=== PATIENT | male | born 1970 | race Caucasian/White ===

== ENCOUNTER 2024-12-16 17:20 | Emergency (ER) | payer OTHER, SELFPAY ==
[2024-12-16 17:37] VITALS: BP 150/81; PULSE 64; RESP 18; TEMP 36.5; O2SAT 98
--- NOTE | 2024-12-16 17:47 | ED.EAR ---
HPI - Ear Problem General Chief complaint: Ear Stated complaint: R Ear Time Seen by Provider: 12/16/24 17:40 Source: patient and RN notes reviewed Mode of arrival: ambulatory Limitations: no limitations History of Present Illness HPI Narrative: Patient presents today complaining of right ear pain that started approximately 6 hours prior to arrival. Denies drainage muffling, or any additional URI symptoms. Currently rates his pain 3/10 and has been taking Tylenol with some improvement. Patient had a right lower posterior tooth removed approximately 8 days ago and states he is having some mild discomfort just posterior to this tooth and is unsure if this is related. He has a follow-up appointment with his dentist sometime next week. Related Data Home Medications ?Medication ?Instructions ?Recorded ?Confirmed ?Last Taken ?Type aspirin 81 mg chewable tablet 12/16/24 Unknown History losartan 25 mg tablet mg 12/16/24 Unknown History metoprolol succinate 25 mg mg PO 12/16/24 Unknown History tablet,extended release 24 hr pantoprazole 40 mg tablet,delayed mg PO 12/16/24 Unknown History release prasugrel HCl 10 mg tablet mg 12/16/24 Unknown History rosuvastatin 40 mg tablet mg 12/16/24 Unknown History Allergies Allergy/AdvReac Type Severity Reaction Status Date / Time No Known Allergies Allergy Verified 12/16/24 17:28 [facility] Comments At time of signature, I have reviewed and agree with nursing past medical, surgical, social and family history unless otherwise noted. Please see nursing chart for further information. There is no relevant family history pertinent to the presenting complaint Exam Narrative: GENERAL: Well-appearing, well-nourished, and in no acute distress. HEAD: Normocephalic, atraumatic. EYES: EOMI. No redness or drainage. Conjunctivae normal. ENT: Mucous membranes pink and moist. Nares clear. No rhinorrhea. TMs normal bilaterally. No movement or tragal tenderness on the right exterior ear. Throat normal. Uvula midline. Healing socket of tooth 31. Mildly erythematous and edematous gumline posterior to this tooth. Tooth 32 absent. No facial swelling noted. NECK: Normal AROM. CHEST: No respiratory distress. EXTREMITIES: Normal range of motion. No edema. SKIN: Warm, dry, no rash. Capillary refill normal. Normal skin turgor. NEURO: No focal deficits. Alert and oriented x3. Gait steady. PSYCH: Normal affect. No signs of depression or anxiety. Course Course Level of Care: Express Care Visit Vital Signs Vital signs: Vital Signs Temperature 97.7 F 12/16/24 17:37 Pulse Rate 64 12/16/24 17:37 Respiratory Rate 18 12/16/24 17:37 Blood Pressure 150/81 H 12/16/24 17:37 Pulse Oximetry 98 12/16/24 17:37 Oxygen Delivery Room Air 12/16/24 17:37 Temperature 97.7 F 12/16/24 17:37 Pulse Rate 64 12/16/24 17:37 Respiratory Rate 18 12/16/24 17:37 Blood Pressure 150/81 H 12/16/24 17:37 Pulse Oximetry 98 12/16/24 17:37 Oxygen Delivery Room Air 12/16/24 17:37 Reviewed Medical Decision Making MDM Narrative Medical decision making narrative: Patient presents today complaining of right ear pain that started approximately 6 hours prior to arrival. Denies drainage muffling, or any additional URI symptoms. Currently rates his pain 3/10 and has been taking Tylenol with some improvement. Patient had a right lower posterior tooth removed approximately 8 days ago and states he is having some mild discomfort just posterior to this tooth and is unsure if this is related. He has a follow-up appointment with his dentist sometime next week. Upon exam, Healing socket of tooth 31. Mildly erythematous and edematous gumline posterior to this tooth. Tooth 32 absent. No facial swelling noted. Patient will be started on a course of amoxicillin for possible oral infection with referred pain to the ear as the ear exam is completely normal. Patient agrees with plan. Vital signs stable with mildly elevated blood pressure. Anticipatory guidance given. Differential Diagnosis Differential Diagnosis: Dental infection, gingivitis, otitis media, otitis externa, ruptured TM, serous otitis Vital Signs Vital Signs: Vital Signs Temperature 97.7 F 12/16/24 17:37 Pulse Rate 64 12/16/24 17:37 Respiratory Rate 18 12/16/24 17:37 Blood Pressure 150/81 H 12/16/24 17:37 Pulse Oximetry 98 12/16/24 17:37 Oxygen Delivery Room Air 12/16/24 17:37 Temperature 97.7 F 12/16/24 17:37 Pulse Rate 64 12/16/24 17:37 Respiratory Rate 18 12/16/24 17:37 Blood Pressure 150/81 H 12/16/24 17:37 Pulse Oximetry 98 12/16/24 17:37 Oxygen Delivery Room Air 12/16/24 17:37 Critical Care Time Critical Care Time Critical Care Time: No Discharge Plan Discharge Clinical Impression: Oral infection Patient Disposition: Home Condition: Stable Instructions: Antibiotic Form Additional Instructions: Please take the amoxicillin as prescribed until gone. Continue Tylenol for pain if needed. Please follow-up with your dentist with any additional concerns. Patient Language: [place] Island[place] Prescriptions: New amoxicillin 875 mg tablet 875 mg PO Q12H 10 Days Qty: 20 0RF No Action pantoprazole 40 mg tablet,delayed release (DR/EC) PO losartan 25 mg tablet prasugrel HCl 10 mg tablet aspirin 81 mg tablet,chewable metoprolol succinate 25 mg tablet extended release 24 hr PO rosuvastatin 40 mg tablet Follow-up/Referrals: UNKNOWN,DOCTOR [Primary Care Provider] Time of Disposition: 17:56
--- OUTSIDE RECORDS SUMMARY | 2024-12-17 15:23 | XMS_ITS | Clinical Summary ---
Author Organization [facility] Address [address] [place] [id number] Care Team Providers Care Commissioning Engineer Name Role Phone Lyly Velazquez PA-C Primary Care Provider + Allergies No known active allergies Medications Multiple Vitamin (MULTIVITAMIN ADULT OR) Active pantoprazole EC (PROTONIX) 40 MG tablet 08/20/2024 Active losartan (COZAAR) 25 MG tablet 09/21/2024 Active rosuvastatin (CRESTOR) 40 MG tablet 08/09/2024 Active ranolazine ER (RANEXA) 500 MG 12 hr tablet 08/10/2024 Active prasugrel (EFFIENT) 10 MG tablet 08/10/2024 Active Multiple Vitamin (MULTIVITAMIN) capsule Take 1 capsule by mouth daily. Active metoprolol succinate ER (TOPROL-XL) 25 MG 24 hr tablet 07/23/2024 Act lisa isosorbide dinitrate (ISORDIL) 10 MG tablet 05/16/2024 Active famotidine (PEPCID) 40 MG tablet 05/16/2024 Active aspirin 81 MG chewable tablet 05/16/2024 Act lisa celecoxib (CELEBREX) 50 MG capsule Take 1 capsule (50 mg total) by mouth 2 (two) times daily as needed. 60 capsule 10/22/2024 Active Encounters Date Type Department Care Team Description 10/22/2024 11:43 AM CDT - 10/22/2024 1:05 PM CDT Hospital Encounter [facility] [address] [place] [id number] [phone] Antonio Becker MD Ankle Pain Discharge Disposition: Home or Self Care (Routine Discharge) 10/22/2024 Travel from Last 3 Months Social History Tobacco Use Types Packs/Day Years Used Date Smoking Tobacco: Never Smokeless Tobacco: Never Tobacco Cessation:Counseling Given: Not Answered Alcohol Use Standard Drinks/Week Comments Yes 0 (1 standard drink = 0.6 oz pur e alcohol) Sex and Gender Information Value Date Recorded Sex Assigned at Male 10/22/2024 11:40 AM CDT Legal Sex Male 4:24 PM CDT Gender Identity Not on file Sexual Orientation Not on file Last Filed Vital Signs Vital Sign Reading Time Taken Comments Blood Pressure 117/77 10/22/2024 11:47 AM CDT Pulse 60 10/22/2024 11:47 AM CDT Temperature 36.6 C (97.9 F) 10/22/2024 11:47 AM CDT Respiratory Rate 18 10/22/2024 11:47 AM CDT Oxygen Saturation 98% 10/22/2024 11:47 AM CDT Inhaled Oxygen Concentration - - Weight 101.6 kg (224 lb) 10/22/2024 11:47 AM CDT Height 190.5 cm (6' 3) 10/22/2024 11:47 AM CDT Body Mass Index 28 10/22/2024 11:47 AM CDT Plan of Treatment Health Maintenance Due Date Last Done Comments Colorectal Cancer Screening Colonoscopy (10 Years) 1972 Annual Physical 04/29/1975 Hepatitis C 1990 Hepatitis B Vaccines (2 of 3 - 19+ 3-dose series) 02/26/1996 01/29/1996, 01/27/1996 Pneumococcal Vaccine: 50+ Years (2 of 2 - PCV) 2022 11/04/2008 COVID-19 Vaccine ( season) 2024 01/20/2021, 12/26/2020, 05/05/2020, Additional history exists Influenza Adult (#1) 2024 11/12/2023, 01/09/2023, 01/27/2021, Additional history exists DTaP, Tdap and Td Vaccines (3 - Td or Tdap) 06/22/2032 06/22/2022, 07/12/2009, 02/16/2005, Additional history exists Hepatitis A Vaccines Aged Out 07/26/1997, 01/22/19 97 No longer eligible based on patient's age to complete this topic Meningococcal Vaccine Aged Out 05/08/2018 , 04/17/2013, 05/07/2003 No longer eligible based on patient's age to complete this topic Zoster Vaccines Completed 12/06/2022, 06/22/2022 Meningococcal B Vaccine Aged Out No l onger eligible based on patient's age to complete this topic RSV Immunizations Under 20 Months Aged Out No longer eligible based on patient's age to complete this topic Procedures Procedure Name Priority Date/Time Associated Diagnosis Comments XR ANKLE LT M3V STAT 10/22/2024 12:23 PM CDT from Last 3 Months Results * XR ANKLE LT M3V (10/22/2024 12:23 PM CDT) Anatomical Region Laterality Modality Ankle Radiographic Liz ging 10/22/2024 12:4 9 PM CDT Impressions 10/22/2024 12:51 PM CDT IMPRESSION: 1. Soft tissue swelling of the lateral ankle without evidence of acute osseous findings. 2. Mild calcaneal plantar spurring. Referred By: Interpreted By: Antonio Lopez MD, 10/22/2024 12:49 PM Narrative 10/22/2024 12:[address] PM [address] [id number] XR ANKLE LT M3V INDICATION: twisted ankle 3 days ago TECHNIQUE: AP lateral and oblique views of the left ankle. COMPARISON: None available. FINDINGS: Ankle mortise is intact. No convincing evidence for acute fracture or dislocation. There is soft tissue swelling seen of the lateral ankle. Mild calcaneal plantar spurring. No radiopaque foreign body. No significant ankle joint effusion. Procedure Note Antonio Lopez MD - 10/22/[address] [place] [address] XR ANKLE LT M3V INDICATION: twisted ankle 3 days ago TECHNIQUE: AP lateral and oblique views of the left ankle. COMPARISON: None available. FINDINGS: Ankle mortise is intact. No convincing evidence for acute fracture ordislocation. There is soft tissue swelling seen of the lateral ankle.Mild calcaneal plantar spurring. No radiopaque foreign body. Nosignificant ankle joint effusion. IMPRESSION: 1. Soft tissue swelling of the lateral ankle without evidence of acuteosseous findings. 2. Mild calcaneal plantar spurring. Referred By: Interpreted By: Antonio Lopez MD, 10/22/2024 12:49 PM us Antonio Becker MD GENERAL IMAGING Final Result from Last 3 Months Insurance [facility] Care Teams Commissioning Engineer Relationship Specialty Start Date End Date Lyly eVlazquez PA-C [address] [place] [id number] PCP - General PHYSICIAN DELIVERY ANALYST 10/22/24
--- OUTSIDE RECORDS SUMMARY | 2024-12-17 15:23 | XMS_ITS | Clinical Summary ---
Author Organization [facility] Address [address] [place] [id number] Care Team Providers Care Automotive Brake Specialist Name Role Phone Lyly Velazquez Primary Care Provider [phone] Allergies Active Allergy Reactions Criticality Noted Date Comments Zolpidem Hallucinations Medium 06/03/2024 Eszopiclone Hallucinations Medium 06/03/2024 Medications VITAMIN D2-VITAMIN K1 ORAL Take 1 tablet/capsule by mouth daily Active prasugreL HCl (EFFIENT) tablet Take 1 tablet (10 mg total) by mouth daily 90 tablet 3 5 05/16/19 26 Active aspirin 81 mg chewable tabletIndicatio ns:prevention of thrombosis Take 1 tablet (81 mg total) by mouth daily 30 tablet 11 5 05/18/19 26 Active calcium carbonate (TUMS) 500 mg (200 mg elemental calcium) chewable tablet Take 2 tablet/chew tab (1,000 mg total) by mouth 3 (three) times a day as needed for heartburn or indigestion 5 05/17/19 26 Active Additional Information Patient not taking.Reported on 08/20/2024 metoprolol XL (TOPROL-XL) 25 mg extended release tablet Take 1 tablet (25 mg total) by mouth nightly 90 tablet 3 5 05/26/19 26 Active ranolazine ER (Ranexa) 500 mg 12 hr tabletIndicatio ns:prevention of anginal pain in coronary artery disease Take 1 tablet (500 mg total) by mouth 2 (two) times a day 180 tablet 3 5 05/27/19 26 Active melatonin 10 mg tablet Take 1 tablet (10 mg total) by mouth nightly as needed CBD/Melatonin gummy 4 gummy's nightly Active osvmwlul-bap-mu lic-vit K-lycop 400-20-370 mcg tablet Take 1 tablet by mouth daily Active red beet 500 mg capsule Take 1 capsule by mouth daily Active losartan (COZAAR) 25 mg tablet Take 1 tablet (25 mg total) by mouth 2 (two) times a day 60 tablet 11 5 06/13/19 26 Active rosuvastatin (CRESTOR) 40 mg tablet Take 1 tablet (40 mg total) by mouth nightly 90 tablet 3 5 06/13/[address] (PROTONIX) 40 mg EC tablet Take 1 tablet (40 mg total) by mouth daily 90 tablet 3 5 08/21/19 26 Active Active Problems Problem Noted Date Diagnosed Date Coronary artery disease due to lipid rich plaque 08/20/2024 Chronic bilateral low back pain without sciatica 07/23/2024 Aneurysm of ascending aorta without rupture 06/12 Overview (06/30/2024): Per CT Chest 05/2024. 4.2 cm. BMI 28.0-28.9,adult 06/04/2024 Assessment & Plan (06/04/2024 10:31 AM CDT): Mixed hyperlipidemia 06/04/2024 Assessment & Plan (06/04/2024 10:31 AM CDT): Orders: Lipid panel; Future Chronic stable angina 05/21/2024 S/P coronary artery stent placement 05/18/2024 Assessment & Plan (06/04/2024 10:31 AM CDT): Orders: Lipid panel; Future Assessment & Plan (05/18/2024 2:42 PM CDT): All medications and history reviewed. Continue with current medication regimen. Follow up with cardiology and cardiac rehab as instructed. If any chest pain or other concerning symptoms recommend in person evaluation. Patient verbalized understanding and agreed to plan of care at this time. 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 Will start Flonase as ordered, and patient should follow up in one week to RTFS. 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 06/11/2023 Well adult exam 11/16/2022 Overview (07/23/2024): PMH: Last PSA: 07/2023, ordered Last colonoscopy: 06/2024, repeat 10 yrs Last Hep C: @57 Last tdap: 06/2022 Last Shingrix: Complete Last influenza: Up-to-date Last COVID: Encouraged Chronic tension-type headache, not intractable 1 03/15/2019 Assessment & Plan (01/13/2020 3:49 PM DIRECTOR OF CONSERVATION): - stable - continue current medications Chronic left shoulder pain 01/13/2020 Assessment & Plan (01/13/2020 3:50 PM DIRECTOR OF CONSERVATION): - suspect mild tendonopathy vs muscle strain - no sign of weakness in rotator cuff - pt given home PT exercises to perform - stop weight lifting with shoulder until heals then gradually increase weight no more than 10%/wk - f/u if no improvement in 1-2 mo and will consider trial of cortisone injection Bilateral primary osteoarthritis of knee 018 Unspecified ptosis of bilateral eyelids 06/28/19 18 Resolved Problems Problem Noted Date Diagnosed Date Resolved Date Annual physical exam 01/13/2020 022 Assessment & Plan (01/13/2020 3:48 PM DIRECTOR OF CONSERVATION): - up to date on labs - encouraged regular exercise but decrease lifting with L shoulder while it heals. Osteoarthritis 01/13/2020 07/23/2024 Assessment & Plan (01/13/2020 3:49 PM DIRECTOR OF CONSERVATION): - stable - celebrex for pain; encouraged to only take celebrex 1/day except when pain flares up - f/u prn Encounters Date Type Department Care Team Description 11/24/2024 Telephone [facility] Cardiology [address] [place] [phone] Clary Calix MD Cardiac Clearance Request from Last 3 Months Immunizations Immunization Administration Dates Next Due Anthrax 03/18/2017 H1N1 Inj 03/18/2009 Hep A, Adult 07/26/1997,01/22/1997 Hep B Vaccine 01/29/1996 Hep B, Adolescent or Pediatric 01/27/1996 Influenza, Quadrivalent, Janie l Culture-based MDCK, Preservative Free, Antibiotic Free, Intramuscular 12/02/2019 Influenza, Quadrivalent, Spl it, Preservative Free, Intramuscular 01/09/2023,01/20/2021,01/29/2019,01/13,12/10/2016 Influenza, Split 10/19/2009, 9,12/05/2007,01/30,01/14/2006,01/11/2006,01/22/2005 ,01/27/2004 Influenza, Trivalent, IM (MDV) 01/18/2016 Influenza, Trivalent, Preser vative Free, Intramuscular 11/24/2014,12/04/2013,11/07/2012,10/30,11/09/2010,11/08/2010 Influenza, Unspecified 11/12/2023,2022(Deferred: Parental decision),01/27/2022(Deferred: Patient Refused),01/27/2021 Influenza, Whole 02/16/2003, 3,11/27/2001,12/24,12/28/1999 MMR 12/15/1996 Meningococcal MCV4P (Menactra) 05/08/2018,2013 Meningococcal Polysaccharide (Menomune) 05/07/2003 OPV 07/12/1995 PPD TEST 11/24/2014, 5,05/26/2010,10/23,10/14/2001,09/30/2000,06/09/1999 Pfizer SARS-CoV-2 Monovalent Vaccination (12+ Yrs) PURPLE 12/26/2020 Pneumococcal Polysaccharide PPV23 11/04/2008 Td, adsorbed 02/16/2005,07/04/1995 Tdap 06/22/2022,07/12/2009 Typhoid H-P SQ/ID 03/18/2006,01/27/2004,03/14/19 03 Typhoid Inactivated 01/13/2018,08/19/2015,2013 Typhoid Live 03/19/1997 Yellow Fever 04/17/2013,03/19/1997 ZOSTER Recombinant 12/06/2022,06/22/2022 Surgical History Surgery Date Site/Laterality Comments WISDOM TOOTH EXTRACTION EYE SURGERY eye lid surgery CARDIAC CATHETERIZATION 05/15/2024 stent x1 to diagonal CARDIAC CATHETERIZATION 05/15/2024 N/A Procedure: LEFT HEART CATHETERIZATION WITH CORONARY ANGIOGRAPHY AND WITH OR WITHOUT LEFT VENTRICULOGRAM [id number]; Surgeon: Clary Calix MD; Location: [facility]; Service: Cardiovascular; Laterality: N/A; Medical devices from this surgery are in the Medical Devices section. CARDIAC CATHETERIZATION 05/15/2024 N/A Procedure: PCI KAM MAJOR CORONARY [id number] - [id number]; Surgeon: Clary Calix MD; Location: [facility]; Service: Cardiovascular; Laterality: N/A; Medical devices from this surgery are in the Medical Devices section. CARDIAC CATHETERIZATION 05/15/2024 N/A Procedure: IVUS/OCT CORS OR GRAFTS, FIRST VESSEL (+) [id number]; Surgeon: Clary aClix MD; Location: [facility]; Service: Cardiovascular; Laterality: N/A; Medical devices from this surgery are in the Medical Devices section. COSMETIC SURGERY Blethroplasty Medical History Medical History Date Comments PTSD (post-traumatic stress disorder) Shoulder pain Cervical pain (neck) Knee pain hx knee tear, ne jethro repaired Chantel-Schlatter's disease Back pain lumbar compressi on fractures Migraines Arthritis GERD (gastroesophageal reflux disease) 2001 Depression 2005 Hypertension 2024 Brain concussion 2003 Family History Medical History Relation Name Comments No Known Problems Brother COPD Father Tbd Heart disease Father Tbd Hypertension Father Tbd Stroke Father Tbd No Known Problems Maternal Grandfather Stroke Maternal Grandmother Tbd Lung cancer Mother Cancer Paternal Grandfather Tbd Heart disease Paternal Grandfather Tbd Cancer Paternal Grandmother Tbd Heart disease Paternal Grandmother Tbd Relation Name Status Comments Brother Father Tbd (Age 80) Maternal Grandfather Maternal Grandmother Tbd Mother Alive Paternal Grandfather Tbd Paternal Grandmother Tbd Social History Tobacco Use Types Packs/Day Years Used Date Smoking Tobacco: Never Smokeless Tobacco: Never Tobacco Cessation:Counseling Given: Not Answered Alcohol Use Standard Drinks/Week Comments Yes 0 (1 standard drink = 0.6 oz pur e alcohol) rare AUDIT-C Answer Date Recorded Q1: How often do you have a drink containing alc ohol? Monthly or less 07/23/2024 Q2: How many drinks containi ng alcohol do you have on a typical day when you are drinking? 1 or 2 07/23/2024 Q3: How often do you have si x or more drinks on one occasion? Never 07/23/2024 PHQ-2 Answer Date Recorded PHQ-2 Total Score (If total score is 3 or more points, staff should administer the PHQ-9) 0 07/23/2024 PHQ-9 Answer Date Recorded PHQ-9 Total Score 0 07/23/2024 Personal Safety Answer Date Recorded Have you ever been in or are you currently in a harmful physical or emotional relationship or is someone making you feel afraid or unsafe? Denies 05/15/2024 Sex and Gender Information Value Date Recorded Sex Assigned at Not on file Legal Sex Male 1:04 PM CDT Gender Identity Male 01/08/2023 7:53 AM DIRECTOR OF CONSERVATION Sexual Orientation Straight 01/08/2023 7: 53 AM DIRECTOR OF CONSERVATION Last Filed Vital Signs Vital Sign Reading Time Taken Comments Blood Pressure 122/86 08/20/2024 2:43 PM CDT Pulse 56 08/20/2024 2:43 PM CDT Temperature 36.1 C (96.9 F) 07/23/2024 7:13 AM CDT Respiratory Rate 16 07/23/2024 7:13 AM CDT Oxygen Saturation 97% 08/20/2024 2:43 PM CDT Inhaled Oxygen Concentration - - Weight 100.7 kg (222 lb) 08/20/2024 2:43 PM CDT Height 190.5 cm (6' 3) 07/23/2024 7:13 AM CDT Body Mass Index 27.75 07/23/2024 7:13 AM CDT Plan of Treatment Health Maintenance Due Date Last Done Comments Hepatitis C Screening 1970 Pneumococcal vaccine <65 (2 of 2 - PCV) 11/04/2009 11/04/2008 Covid-19 Vaccine (5 - 2024-2 6 season) 2024 01/20/2021, 12/26/2020, 05/05/2020, Additional history exists Influenza Vaccine (#1) 2024 , 01/09/2023, 01/27/2021, Additional history exists Prostate Cancer Screening-PSA 07/14/2025 07/15/2023, 06/29/2022 Depression Screening 07/23/2025 07/23/2024, 07/23/2024, 06/04/2024, Additional history exists Regular Well Visit/Exam 18-64 07/23/2025, 06/11/2023, 06/11/2023, Additional history exists DTaP/Tdap/Td Vaccine (3 - Td or Tdap) 06/22/2032 06/22/2022, 07/12/2009, 02/16/2005, Additional history exists Colon Cancer Screening-Colonoscopy 06/30/20332023 Hepatitis B Screening Completed 01/29/1996, 996 Zoster Vaccine Completed 12/06/2022, 06/22/2022 Medical Devices Implanted Type Area Demurrage Man Device Identifier Shelf Expiration Date Model / Serial / Lot Medtronic Card Vasc Surgery 2.25 X 18mm [place] [employer] Coronary Stent [id number] - [id number] Implanted:Qty: 1 on 05/15/2024 by Clary Calix MD at [facility] Medtronic Card Vasc Surgery 10/25/2026 [id number] / / [id number] Procedures Procedure Name Priority Date/Time Associated Diagnosis Comments PSA SCREEN Routine 07/15/2023 8:55 AM CDT Screening for prostate cancer COLONOSCOPY 07/01/2023 9:01 AM CDT from Last 3 Months or Most Recently Relevant to Health Maintenance Results * PSA screen (07/15/2023 8:55 AM CDT) PSA-Total 0.92 <=3.90 ng/mL Comment: Interpretive Data AGE SEX REFERENCE INTERVAL 0 minutes-150 years Female None 0 minutes-49 years Male None 50-59 years Male 0-3.90 60-69 years Male 0-5.40 70-79 years Male 0-6.20 80-150 years Male 0-6.20 The Madan PSA Total assay procedure was used. Results from different manufacturers or methods may not be comparable. Serial testing should be performed using the same method. Current interpretive data last revised 21. Testing performed by: [facility], [address] [place] [address]., [id number] Blood 07/15/2023 8:55 AM CDT 07/15/2023 12:11 PM CDT us Todd Caputo MD LAB BLOOD ORDERABLES Final Result [id number] [facility] Department [place] [address] * Colonoscopy (07/01/2023 9:01 AM CDT) Anatomical Region Laterality Modality Other Narrative Procedure Note Ovidio Couch MD - 07/01/2023 9:01 AM CDT [facility] Patient Name: Jesus Manuel Rao Procedure Date: 07/01/2023 9:01 AM Date of : 1970 Admit Type: Outpatient Age: 53 Gender: Male Attending MD: Ovidio Couch M.D. Room: [facility] ENDOSCOPY ROOM 06 Note Status: Finalized Procedure: Colonoscopy Indications: Screening for colorectal malignant neoplasm Referring MD: Providers: Ovidio Couch M.D. Medicines: Monitored Anesthesia Care Complications: No immediate complications. Estimated Blood Loss: Estimated blood loss: none. Procedure: Pre-Anesthesia Assessment: - Prior to the procedure, a History and Physicalwas performed, and patient medications and allergieswere reviewed. The risks and benefits of the procedureand the sedation options and risks were discussed withthe patient. All questions were answered and informed consent was obtained. Patient identification and proposed procedure were verified. After reviewingthe risks and benefits, the patient was deemed in satisfactory condition to undergo the procedure.The anesthesia plan was to use monitored anesthesiacare (MAC). Immediately prior to administration of medications, the patient was re-assessed foradequacy to receive sedatives. The heart rate, respiratory rate, oxygen saturations, blood pressure, adequacyof pulmonary ventilation, and response to care were monitored throughout the procedure. The physical status of the patient was re-assessed after the procedure. The benefits, risks and alternatives of theprocedure and sedation were discussed and informed consentwas obtained. All questions were answered. Please referto the signed informed consent document in the medical record. The scope was passed under direct vision.The [id number] colonoscope was introduced through theanus and advanced to the cecum, identified byappendiceal orifice and ileocecal valve. The colonoscopy was performed without difficulty. The patient tolerated the procedure well. The quality of the bowel preparation was adequate. Scope withdrawal time was11 minutes. Prep was administered in a split dose. Findings: The perianal and digital rectal examinations were normal. A diminutive polyp was found in the sigmoid colon. The polyp wasremoved with a cold biopsy forceps. Resection and retrieval were complete. A few small-mouthed diverticula were found in the sigmoid colon. Non-bleeding internal hemorrhoids were found during retroflexion. The hemorrhoids were small. The exam was otherwise without abnormality. Impression: - One diminutive polyp in the sigmoid colon,removed with a cold biopsy forceps. Resected andretrieved. - Diverticulosis in the sigmoid colon. - Non-bleeding internal hemorrhoids. - The examination was otherwise normal. Recommendation: - Patient has a contact number available for emergencies. The signs and symptoms of potential delayed complications were discussed with thepatient. Return to normal activities tomorrow. Written discharge instructions were provided to thepatient. - High fiber diet. - Continue present medications. - Await pathology results. - Repeat colonoscopy in 5 years if polypadenomatous, otherwise repeat colonoscopy in 10 years. Ovidio Couch M.D. Ovidio Couch M.D. 07/01/2023 9:55:28 AM . Number of Addenda: 0 Note Initiated On: 07/01/2023 9:01 AM Recognized by the [place] [employer] for promoting quality in endoscopy Ovidio Couch MD ENDOSCOPY PROCEDURES Final Resul t from Last 3 Months or Most Recently Relevant to Health Maintenance Insurance [facility] Advance Directives For more information, please contact: [phone] * Full Code (Latest Code Status on File) Date Activated Date Inactivated Comments 05/15/2024 2:35 PM 05/16/2024 3:50 PM * Full Code Date Activated Date Inactivated Comments 05/15/2024 2:29 PM 05/15/2024 2:35 PM Care Teams Automotive Brake Specialist Relationship Specialty Start Date End Date Lyly Velazquez PA [address] [place], [place] [id number] PCP - General Family Medicine 06/03/24
--- OUTSIDE RECORDS SUMMARY | 2024-12-17 15:23 | XMS_ITS | Patient Health Record ---
Author Organization [facility] Address [address] [place], [place] [id number] Care Team Providers Care Brigadier Name Role Phone JAKE Fontana Unavailable [phone] Reason For Referral No Information Social History Social History Additional Details Category Social Info Options Details Migrated Social History Migrated Social History Alcohol intake : , History of tobacco use : , Smoking Status : Never smoked Plan Of Treatment No Information Insurance Providers Payer Name Payer Address Payer Phone Subscriber Number Group Number Insured Name Patient Relationship to Insured Coverage Start Date Coverage End Date [facility] [address] [place] [address] [id number] ELOISE SALAS Self - patient is the insured
--- OUTSIDE RECORDS SUMMARY | 2024-12-17 15:23 | XMS_ITS | Clinical Summary ---
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 Gender Identity Not on file Sexual Orientation Not on file Plan of Treatment Health Maintenance Due Date Last Done Comments Hepatitis C Virus (HCV) Screening 1970 TdaP Immunization 1970 Hepatitis B Immunization (1 of 3 - 19+ 3-dose series) 04/29/1991 Cologuard 2017 Colonoscopy 2017 Colorectal Cancer Screening 2017 Immunochemical Fecal Occult Blood 2017 Pneumococcal Immunization (5 0+ years) (1 of 1 - PCV) 2022 Zoster Immunization (1 of 2) 2022 Influenza Immunization (#1) 2024 SARS-COV-2 Immunization ( - season) 2024 Respiratory Syncytial Virus (RSV) Immunization (Adult) (1 - 1-dose 75+ series) 04/29/2047 Human Papillomavirus (HPV) Immunization Aged Out No longer eligible b ased on patient's age to complete this topic Meningococcal Immunization (ACWY) Aged Out No longer eligible based on patient's age to complete this topic Rotavirus Immunization Aged Out No lo nger eligible based on patient's age to complete this topic
== END 2024-12-16 17:59 | disposition home or self-care (01) ==
PROVIDERS: Emergency Provider Nurse Practitioner
DX: K05.10 Chronic gingivitis, plaque induced (principal); I10 Essential (primary) hypertension; E78.00 Pure hypercholesterolemia, unspecified; K21.9 Gastro-esophageal reflux disease without esophagitis; Z95.5 Presence of coronary angioplasty implant and graft
CPT/HCPCS: 99213; G0463